=== PATIENT | male | born 1940 | race Caucasian/White ===

== ENCOUNTER 2021-01-30 20:24 | Observation (INO) | payer OTHER ==
[~2021-01-30] VITALS: Ht 190.5 cm; Wt 124.9 kg
[~2021-01-30 20:24] MED LIST: AMLO5 PO; ASPI81CH; ASPI81CH PO; ASPI81EC; ATEN100; ATEN100 PO; ATEN50; ATOR10 PO; ATOR40TA PO; CARB100CH PO; CLON1; DOXE0.5 PO; ERGO50000 PO; ESCI10 PO; ESOM20; GABA100 PO; GEMF600; IBUP800 PO; IRBE150 PO; LOSA25 PO; LOSA50; MULVITMINF; NEBI5 PO; NIAC500ER; NIAC500ER PO; NITR.4SL; NITR2.5ER; NORVASC; OXYACE5T PO; QUIN200; ROPI.25 PO; RXOXYACE PO; TIZA4 PO; VITAMIN D PO; [UNRECOGNIZED DRUG - OTHER] PO
[2021-01-30 20:41] LABS: BASOPHILS ABSOLUTE AUTO 0.02 K/mm3 (0.00-0.23); BASOPHILS PERCENT AUTO 0 % (0-2); EOSINOPHILS ABSOLUTE AUTO 0.27 K/mm3 (0.00-0.68); EOSINOPHILS PERCENT AUTO 4 % (0-6); Hematocrit 44.6 % (37.0-53.0); Hemoglobin 14.8 g/dL (13.5-17.5); IMMATURE GRAN ABSOLUTE AUTO 0.07 K/mm3 (0.00-0.10); IMMATURE GRAN PERCENT AUTO 1 % (0-1); LYMPHOCYTES ABSOLUTE AUTO 1.49 K/mm3 (0.84-5.20); LYMPHOCYTES PERCENT AUTO 21 % (21-46); MONOCYTES ABSOLUTE AUTO 0.59 K/mm3 (0.16-1.47); MONOCYTES PERCENT AUTO 8 % (4-13); Mean Corpuscular HGB 29.4 pg (26.0-34.0); Mean Corpuscular HGB Conc 33.2 g/dL (31.5-36.5); Mean Corpuscular Volume 89 fL (80-100); NEUTROPHILS ABSOLUTE AUTO 4.71 K/mm3 (1.96-9.15); NEUTROPHILS PERCENT AUTO 66 % (41-73); Platelet Count 115 K/mm3 (150-400); RDW Coefficient Variation 14.1 % (11.7-14.2); RDW Standard Deviation 45.2 fL (35.1-46.3); Red Blood Cell Count 5.04 M/mm3 (4.30-5.90); White Blood Cell Count 7.15 K/mm3 (4.00-11.30)
[2021-01-30 20:57] LABS: Alanine Aminotransfer (ALT/SGP 36 U/L (12-78); Albumin, Blood 3.4 g/dL (3.4-5.0); Alk Phos 76 U/L (50-136); Anion Gap 7 mmol/L (6-16); Aspartate Aminotrans (AST/SGOT 18 U/L (12-37); Bilirubin, Total 1.1 mg/dL (0.1-1.0); Blood Urea Nitrogen 24 mg/dL (8-24); Bun/Creatinine Ratio 16.8 (12.0-20.0); CO2, Blood 26 mmol/L (21-32); Calcium, Blood 8.5 mg/dL (8.5-10.1); Chloride, Blood 109 mmol/L (98-108); Creatinine, Blood 1.43 mg/dL (0.60-1.20); Globulin, Blood 3.3 g/dL (2.2-4.0); Glomerular Filtration Rate 47 (60-); Glucose, Blood 115 mg/dL (70-99); Potassium, Blood 4.2 mmol/L (3.5-5.5); Sodium, Blood 142 mmol/L (136-145); Total Protein, Blood 6.7 g/dL (6.4-8.2); Troponin I <0.015 ng/mL (0.000-0.040)
[2021-01-30] MEDS ORDERED: SERT100 PO (21:22)
[2021-01-30] MEDS ORDERED: STIOLTO RESPIMAT4 G1 INH (21:22)
[2021-01-30] MEDS ORDERED: SYNTHROID75 MCG PO (21:22)
[2021-01-30] MEDS ORDERED: ALBU90OI INH (21:22)
[2021-01-30] MEDS ORDERED: FISH OIL 1,2001 EAC7 PO (21:22)
[2021-01-30] MEDS ORDERED: FURO20 PO (21:23)
[2021-01-30] MEDS ORDERED: LOSA50 PO (21:23)
[2021-01-30] MEDS ORDERED: CLON1 PO (21:23)
[2021-01-30] MEDS ORDERED: Vitamin B Comple1 EA PO (21:23)
[2021-01-30] MEDS ORDERED: GABA100 PO (21:23)
[2021-01-30] MEDS ORDERED: OMEP20ER PO (21:23)
[2021-01-30] MEDS ORDERED: CYCL10 PO (21:24)
[2021-01-30 23:33] LABS: CHOL/HDL RATIO 4.9; Cholesterol 176 mg/dL (50-200); HDL Cholesterol 36 mg/dL (>39); LDL/HDL RATIO 2.9; Low Density Lipoprotein Chol 106 mg/dL (0-110); Triglycerides 171 mg/dL (30-160); Very Low Density Lipoprot Chol 34 mg/dL (6-32)
--- NOTE | 2021-01-31 01:02 | NUR ---
0029 PT ARRIVED TO ROOM FROM ER IN STABLE CONDITION. PT DENIES ANY DISCOMFORT AT THIS TIME. TELE NSR AT 73 WITH PVC'S. CALL LIGHT IS IN REACH.
--- NOTE | 2021-01-31 06:10 | NUR ---
0200 PT LYING IN BED, EYES CLOSED, APPEARS TO BE RESTING. BREATHING IS EVEN, UNLABORED. NO APPARENT SIGNS OF DISTRESS. CALL LIGHT IS IN REACH. BED ALARM IS ON.
--- NOTE | 2021-01-31 06:11 | NUR ---
PT IS AAO X 4, ON RA, VERY [place]. DENIED ANY DISCOMFORT FOR THIS SHIFT. TELE WAS NSR WITH PVC'S.
--- NOTE | 2021-01-31 06:12 | NUR ---
PT IS LYING IN BED, EYES CLOSED, APPEARS TO BE RESTING. BREATHING IS EVEN, UNLABORED. NO APPARENT SIGNS OF DISTRESS. CALL LIGHT IS IN REACH. BED ALARM IS ON. NO OTHER CHANGES THIS SHIFT.
--- NOTE | 2021-01-31 18:42 | NUR ---
A+O, KAW, stress test completed waiting for results, rm air, saline locked, resting quietly, family calling to ck status frequently
--- NOTE | 2021-02-01 05:38 | NUR ---
SLEPT WELL. NO CHEST PAIN, PRESSURE OR RELATED DISCOMFORT NOTED. NO CHANGES FROM PREVIOUS EVENING. HOPING TO GO HOME TODAY.
--- NOTE | 2021-02-01 14:43 | NUR ---
DISCHARGE: PT'S IV DC'D WNL. INSTRUCTIONS GIVEN TO PT AND DAUGHTER AT BEDSIDE. PLAN IS FOR F/U WITH PT'S PCP. PT STATES HE HAS FOLLOW UP SCHEDULED FEBRUARY 12. DENIED FURTHER NEEDS OR CONCERNS. ESCORTED OUT VIA WHEEL CHAIR BY HOSPITAL STAFF.
== END 2021-02-01 14:27 | disposition home or self-care (01) ==
LOC: ER 20:24 → MEDS 23:04
PROVIDERS: Emergency Medicine; ADMIT Family Medicine
DX: R07.89 Other chest pain (principal); E78.5 Hyperlipidemia, unspecified; I25.10 Atherosclerotic heart disease of native coronary artery without angina pectoris; I12.9 Hypertensive chronic kidney disease with stage 1 through stage 4 chronic kidney disease, or unspecified chronic kidney disease; N18.30 Chronic kidney disease, stage 3 unspecified; D69.6 Thrombocytopenia, unspecified; E03.9 Hypothyroidism, unspecified; F32.9 Major depressive disorder, single episode, unspecified; K21.9 Gastro-esophageal reflux disease without esophagitis; E78.1 Pure hyperglyceridemia; Z87.891 Personal history of nicotine dependence; Z88.0 Allergy status to penicillin; Z88.8 Allergy status to other drugs, medicaments and biological substances; Z91.018 Allergy to other foods
CPT/HCPCS: 36415; 71045; 78452; 80053; 80061; 83880; 84484; 85025; 93005; 93010; 93017; 94640; 94760; 96372; 99285-25; A9270; A9500; G0378; J0706; J1650; J2785